=== PATIENT | female | born 1970 | race Caucasian/White ===

== ENCOUNTER 2025-04-27 08:23 | Outpatient (AMB) | payer OTHER, SELFPAY ==
--- NOTE | 2025-04-27 08:26 | A.PHYSOV ---
Vital Signs 04/27/25 08:31 Comment patient is a ampute Intake Visit Reasons: 2M FUV Intake Note: Patient is a 54 year old female in office today for a 2 month follow up visit. 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 She suffers from chronic neck and lower back pain and is wheelchair dependent. Her pain has been managed with immediate-release morphine, though she reports taking more than she would like and feels it is no longer effective. A prior recommendation to switch her to extended-release morphine was not implemented by her primary care office. She was started on gabapentin, which she reports is not working well and initially caused some confusion. She previously used cannabis, which was effective for her pain, but she stopped using it in January after starting gabapentin and now finds it makes her feel too high. The patient recently had an inpatient evaluation at the [facility] ([facility]) where she saw multiple specialists. She did not see physical medicine or psychiatry as planned due to a shutdown. Nerve conduction studies performed at the [facility] suggested a possible ulnar neuropathy. She is awaiting a full report with recommendations from the [facility], which is expected in about two months. Apparently someone at [facility] recommended use of Marinol for chronic pain. Pain Description - Location: Patient reports chronic neck and lower back pain. - Severity/Timing: Reports still having significant pain despite her medications. - Associated Symptoms: The patient reports being tired of being in pain, and some days the pain is so severe she cannot get out of bed. - Exacerbating Factors: Leaning over causes significant pain in her leg. Results - Cervical Spine MRI (07/29/2024): Showed mild compressive deformities at C4 and C5 vertebral bodies with associated bone marrow edema. - Lumbosacral Spine MRI (09/22/2024): Was generally noncontributory. - Nerve Conduction Studies (recent, at [facility]): Findings suggested possible ulnar neuropathy. [facility] Medical History (Updated 04/27/25 @ 12:50 by Robbie Aguilera DO) Congenital amputation of both lower extremities Thoracic spine pain Chronic pain syndrome Surgical History (Updated 04/27/25 @ 08:30 by Ute Acevedo MA) H/O hand surgery (Unknown) History of colon resection (Unknown) History of surgery on lower extremity (Unknown) Social History (Updated 04/24/25 @ 07:29 by Ute Acevedo MA) Alcohol intake: current Alcohol intake frequency: does not drink Patient Tobacco Use Status: Never used Tobacco Current occupational status: retired Review of Systems Narrative Review of Systems - Constitutional: Reports feeling tired due to being in constant pain. - Musculoskeletal: Reports chronic neck and low back pain. - Neurological: Reports a history of confusion associated with gabapentin. Physical Exam Exam Exam: Physical Exam - General: The patient is wheelchair dependent. She was appropriately conversant oriented and was able to move around the room in the wheelchair independently Assessment & Plan Assessment & Plan (1) Chronic pain syndrome: Code(s): G89.4 - Chronic pain syndrome Category: Medical (2) Thoracic spine pain: Code(s): M54.6 - Pain in thoracic spine Category: Medical (3) Congenital amputation of both lower extremities: Code(s): Q72.03 - Congenital complete absence of lower limb, bilateral Category: Medical Plan Pain Management - Affect: The patient reports being tired of being in pain. - Analgesia: The patient is currently taking immediate-release morphine, which she feels is not working effectively, and she is taking more than she would like. - Analgesia: She is also on gabapentin, which is reportedly not providing significant benefit. - Adverse Effects: She reports that gabapentin previously caused confusion. - Activities of Daily Living: The patient is wheelchair-dependent, and on some days, the pain is so severe she cannot get out of bed. - Aberrant Drug-Related Behaviors: The patient reports she has a contract for morphine with her primary care doctor. Plan Patient was informed and verbally consented to the use of an ambient scribe for clinic note documentation during this visit. 1. Chronic Pain Syndrome The patient's chronic pain is inadequately controlled with her current regimen of immediate-release morphine and gabapentin. She has developed tolerance to morphine, and gabapentin provides little benefit. Due to concerns about long-term use of gabapentin and potential risk for dementia, an increase in dosage is not recommended. Treatment alternatives, including Marinol and a buprenorphine patch, were discussed. The plan is to send another note to her primary care physician to reiterate the recommendation to switch her from short-acting to a long-acting morphine formulation. No new medications will be prescribed from this clinic at this time to avoid conflict with her primary care's opioid contract. We will await the formal recommendations from her recent evaluation at the [facility]. She will follow up after the holidays or as needed to review her progress and the [facility] report. Discussion Notes I discussed with the patient that her chronic pain is sub-optimally controlled. I explained that developing tolerance to long-term opioid medications like morphine is expected and that over time, they may only provide about 20% pain relief. I also noted my hesitation to increase her gabapentin dose due to recent studies suggesting a long-term risk of dementia. We discussed several options, including Marinol, as suggested by her [facility] physician, and a buprenorphine patch. I informed her that insurance coverage for Marinol for chronic pain is often difficult to obtain. We also discussed that if I were to prescribe an opioid like the buprenorphine patch, her primary care physician might terminate her morphine prescription. Given these factors, we agreed that the best course of action is for me to again send a recommendation to her primary care physician to switch her to a long-acting opioid, which I have done previously. The patient will follow up with her PCP on this recommendation and will return here after the holidays. I promised her that I will again recommend switching her from immediate release morphine to extended release morphine to her primary care physician. I would recommend initiating the the same dose of extended release morphine to replace her immediate release morphine. Other options may include initiation of buprenorphine patches for better more even pain control based on patient's tolerance. Patient Instructions - A note will be sent to your primary care doctor recommending a change in your morphine prescription to a long-acting version. Please follow up with their office about this change. - Do not increase your dose of gabapentin. - When you receive your report from the [facility] ([facility]), please share it with our office through the new patient portal. - Please schedule a follow-up appointment after the holidays, or sooner if needed. Coding Level of Care Code Est Pt Level 4 (15230) Complex visit Add On G2211 Diagnoses Chronic pain syndrome G89.4 Thoracic spine pain M54.6 Congenital amputation of both lower extremities Q72.03
== END 2025-04-27 08:32 | disposition home or self-care (01) ==
LOC: HO.HPHYS 08:23
PROVIDERS: PCP Internal Medicine; Visit Provider Physical Medicine & Rehabilitation
DX: G89.4 Chronic pain syndrome (principal); M54.6 Pain in thoracic spine; Q72.0 Congenital complete absence of lower limb
CPT/HCPCS: 99214; G2211

== ENCOUNTER → 2025-04-27 08:23 | Outpatient (BNVA) | payer OTHER, SELFPAY | PROVIDERS: PCP Internal Medicine; Visit Provider Physical Medicine & Rehabilitation | DX: G89.4 Chronic pain syndrome (principal); M54.6 Pain in thoracic spine; Q72.0 Congenital complete absence of lower limb | CPT/HCPCS: 99212 ==